=== PATIENT | male | born 1935 | race Native Hawaiian/Other Pacific Islander ===

== ENCOUNTER 2023-12-20 09:51 | Outpatient (CLI) | payer OTHER ==
[2023-12-20 10:12] LABS: PLATELET COUNT 262 K/uL (142-355)
[2023-12-20 10:37] LABS: POTASSIUM 4.8 mmol/L (3.6-5.2)
== END 2023-12-20 19:39 | disposition home or self-care (01) ==
LOC: LABW 09:51
PROVIDERS: ATTEND Internal Medicine Hematology & Oncology
DX: C61 Malignant neoplasm of prostate (principal); C79.51 Secondary malignant neoplasm of bone
CPT/HCPCS: 80053; 84153; 85027